=== PATIENT | male | born 1955 | race Caucasian/White ===

== ENCOUNTER 2019-03-28 11:04 | Inpatient (IN) | payer BC ==
[~2019-03-28] VITALS: Ht 165.1 cm; Wt 59.6 kg
[2019-03-28 11:11] VITALS: Ht 165.1 cm; Wt 59.6 kg
--- NOTE | 2019-03-28 11:42 | NUR ---
PT ARRIVES BY AMBULANCE FOR ALOC BUT UPON ARRIVAL IS ALERT AND ORIENTED X 4. C/O BACK PAIN FOR A "LONG TIME" WITH N/V THAT HAS BEEN GOING ON FOR AT ALEAST A MONTH. PT HAS LEFT ABD COLOSTOMY IN PLACE WITH URINARY CATH IN PLACE. PT IS SHAKING UPON ARRIVAL AND CLAIMS SHAKING JUST STARTED. PT IS A FEBRILE. HAS DIAPER IN PLACE THAT IS CLEAN AND DRY. SKIN IS INTACT WITH TURGOT GREATER THAN 3 SEC. PT HAS INTERMITTENT UPPER AND LOWER EXTREMITY BRUISING. DR MICHELE AT BEDSIDE FOR EVAL AND PT CONNECTED TO TOBACCO CHECKOUT CLERK
--- NOTE | 2019-03-28 11:48 | NUR ---
CALLED BRIAN TO CLARIFY CODE STATUS. COPY OF POLST DATED 03/07/19 STATES "ATTEMPT RESUSCITATION/CPR." RESIDENT FACE SHEET HAS NOTATION "DO NOT RESUSUCITATE/COPY ON FILE/POLST 03/18/19." SPOKE W/ HAROON. SHE STATES PT IS DNR & STATES SHE WILL FAX US A COPY. I ALSO EXPRESSED CONCERN THAT A [facility] WAS CALLED FOR HIM GIVING THAT HIS BLOOD PRESSURE WAS HIGH, HE WAS TACHYCARDIC, HE WAS SHORT OF BREATH, HE WAS ACUTELY ALTERED & SHAKING SINCE YESTERDAY, & HE WAS ACTIVELY VOMITING. SHE SAID "OK."
--- NOTE | 2019-03-28 11:54 | NUR ---
PT LEFT FOR CT VIA RNEY
[2019-03-28 12:30] LABS: ALKALINE PHOSPHATASE 126 U/L (46-116); ALT/SGPT 38 U/L (16-63); AST/SGOT 16 U/L (15-37); BILIRUBIN TOTAL 0.63 mg/dL (0.20-1.00); CALCIUM 9.2 mg/dL (8.5-10.1); CARBON DIOXIDE 18.2 mmol/L (21-32); CHLORIDE SERUM 108 mmol/L (98-107); CREATININE SERUM 1.2 mg/dL (0.7-1.3); GFR1 > 60 mL/min; GLUCOSE SERUM 185 mg/dL (74-106); SODIUM SERUM 144 mmol/L (136-145); TOTAL PROTEIN, SERUM 7.2 g/dL (6.4-8.2)
[2019-03-28 12:34] LABS: ALBUMIN 2.9 g/dL (3.4-5.0); CHOLESTEROL 89 mg/dL (<200); HDL CHOLESTEROL 25 mg/dL (40-60)
--- NOTE | 2019-03-28 12:35 | NUR ---
POTASSIUM 2.9 DR MICHELE NOTIFIED.
[2019-03-28 12:36] LABS: POTASSIUM SERUM 2.9 mmol/L (3.5-5.1)
--- NOTE | 2019-03-28 12:40 | NUR ---
AT BEDSIDE AND PT ALERT TO SELF ONLY. AT BEDSIDE CLAIMS THAT PT HAS BEEN INTERMITTENTLY HALLUCINATING AND BECOMING CONFUSED. AT THIS TIME PT SAYING HE WANTS TO GO "SIT IN THE CAR."
[2019-03-28 12:58] LABS: BASOPHIL % 0 % (0-2); PLATELET COUNT 409 x10^3mcL (130-400); RED CELL DISTRIBUTION WIDTH 16.4 % (11.5-14.5)
--- NOTE | 2019-03-28 13:44 | NUR ---
CALLED [facility] FOR COLOSTOMY CHANGE SUPPLIES AND NO ANSWER
--- NOTE | 2019-03-28 14:07 | NUR ---
PT'S REQUESTING WATER AND ICE, PER DR. MICHELE PT CAN HAVE ICE CHIPS ONLY.
[2019-03-28 14:13] LABS: microscopic required? YES; urine erythrocyte 1+ (NEGATIVE)
[2019-03-28] MEDS ORDERED: APAP500 MG PO ×2 (14:24→14:26)
[2019-03-28] MEDS ORDERED: ACIDOPHILUS-PE1 EAC2 PO (14:25)
[2019-03-28] MEDS ORDERED: NOR5 PO (14:32)
[2019-03-28] MEDS ORDERED: GERI-HYDROLAC12% TOP (14:33)
[2019-03-28] MEDS ORDERED: ASPIRIN ADULT L81 M5 PO (14:33)
[2019-03-28] MEDS ORDERED: BUMETANIDE1 MG PO (14:34)
[2019-03-28] MEDS ORDERED: DULCOLAX10 M1 RC (14:34)
[2019-03-28] MEDS ORDERED: NEU300 PO (14:35)
[2019-03-28] MEDS ORDERED: ELMIRON100 MG PO (14:35)
[2019-03-28] MEDS ORDERED: COLACE100 MG PO (14:35)
[2019-03-28] MEDS ORDERED: HUMULIN R500 UNIT/1 SQ (14:37)
[2019-03-28] MEDS ORDERED: HYDRALAZINE HCL50 MG PO (14:39)
[2019-03-28] MEDS ORDERED: LIDODERM51 TOP (14:39)
[2019-03-28] MEDS ORDERED: NASONEX0.05 MG/Ac (14:40)
[2019-03-28] MEDS ORDERED: METOPROLOL TAR100 MG PO (14:40)
[2019-03-28] MEDS ORDERED: ONDANSETRON4 M3 PO (14:41)
[2019-03-28] MEDS ORDERED: FLO4 PO (14:41)
[2019-03-28] MEDS ORDERED: POTASSIUM CHLO10 MEQ PO (14:41)
[2019-03-28] MEDS ORDERED: PANTOPRAZOLE SO40 M1 PO (14:41)
[2019-03-28] MEDS ORDERED: MULTIVITAMIN1 SGL PO (14:42)
--- NOTE | 2019-03-28 14:48 | NUR ---
COLOSTOMY CHANGE PERFORMED AND PT TOLERATED WELL. REQUEST PER AT BEDSIDE
--- NOTE | 2019-03-28 15:05 | NUR ---
AT BEDSIDE CLAIMING SHE WANTED TO GO TO [place] BECAUSE THAT IS WHERE ALL THE DR'S THEY DEAL WITH ARE AT. PT HAS BEEN MEDICATED FOR NAUSEA AND PAIN. ALSO MEDICATED TO FIX POTASSIUM IMBALANCE AND IS CURRRENTLY GETTING IV AB
--- NOTE | 2019-03-28 15:30 | NUR ---
AT BEDSIDE TO SPEAK WITH PT'S .
--- NOTE | 2019-03-28 15:52 | NUR ---
EMPTIED 600M CLEAR YELLOW URINE FROM PT'S SAUCEDA BAG. REMAINS AT BEDSIDE.
--- NOTE | 2019-03-28 16:24 | NUR ---
REPORT GIVEN TO YONAS ON TELE FLOOR
--- NOTE | 2019-03-28 16:37 | NUR ---
RECEIVED PT FROM ED VIA [facility], CAME IN DUE TO ALOC. PT IS AAOX2 (PERSON, PLACE AND BIRTHDATE). ABLE TO FOLLOW SIMPLE COMMANDS. NO SOB NOTED, LUNG SOUNDS CTA, O2 AWL=950%, RR=24. DENIES CHEST PAIN/PRESSURE, SINUS TACHYCARDIA ON THE MONITOR, HR AT 111. PT HAS BEEN NAUSATED AND HAS BEEN VOMITING, UNABLE TO KEEP ANYTHING DOWN. PER PT'S , PT WAS ON TPN. W/ COLOSTOMY, STOMA IS PINK. W/ SAUCEDA CATHETER DRAINING W/ FRANCIA COLORED URINE. C/O 8/10 HIP AND BACK PAIN. W/ SCABS ON THE LEFT FOOT OUTER LATERAL ASPECT, HEAD LOADER. W/ ECCHYMOSIS ON BUE. W/ DOUBLE LUMEN PICC LINE ON THE LUE AND RAC GAUGE 20 PERIPHERAL IV. SIDE RAILS UPX2. CALL LIGHT ON REACH. HOB ELEVATED AT 30 DEG. PRIMARY NURSE YONAS AT BEDSIDE FOR CONTINUITY OF CARE
[2019-03-28 17:12] VITALS: BP 131/87
--- NOTE | 2019-03-28 18:35 | NUR ---
PT IS LAYING DOWN IN BED WITH HOB UP ON THE RIGHT SIDE. PT HAS TREMORS AND IS HAVING ACTIVE HALLUCINATIONS AND IS TALKING TO HIMSELF. PT STATES THAT HE HEARS VOICES BUT "DOESN'T EVER LISTEN TO THEM." PT STATES THE VOICES DO NOT TELL HIM TO HARM HIMSELF OR OTHERS. IV SITE TO RAC IS PATENT WITH NO SIGNS OF ERYTHEMA OR SWELLING WITH IV FLUIDS INFUSING. PICC LINE TO LUE LOOKS PATENT BUT NO ORDER PRESENT FOR OKAY TO USE. 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 FAMILY MEMBER AT BEDSIDE. CALL LIGHT WITHIN REACH. WILL ENDORSE TO ONCOMING SHIFT.
--- NOTE | 2019-03-28 19:35 | NUR ---
REC'D REPORT FROM YONAS BACA TO ASSUME CARE. PT A/O X2, WITH EPISODES OF CONFUSION. PERRLA NOTED. PT NOTED WITH TREMORS. RESPS E/U ON ROOM. LUNG SOUNDS CTA. CHEST RISE EQUAL AND SYMMETRICAL. TELE MONITOR #[address] DENIES ANY CP, SYNCOPE OR DIZZINESS. PULSES PALPABLE X4. CAP REFILL < 3 SECS. NO EDEMA NOTED. NOHEMY PICC LINE IN PLACE, 2 PORTS NOTED WITH 1 PORT ONLY PATENT. FLUSHED WITH 10CC NS WITHOUT ANY DIFFICULTY. IV TO RAC INTACT AND PATENT. IVF NS INFUSING @ 50ML/HR. PT ON CARDIAC DIET WITH POOR APPETITE. PT WITH C/O NAUSEA, WILL NOTIFY MD. ABD FLAT, SOFT, NONTENDER TO TOUCH. COLOSTOMY IN PLACE DRAINING SOFT BROWN STOOL. F/C INTACT AND DRAINING VIA GRAVITY YELLOW URINE. BUE SCATTERED ECCHYMOSIS. LEFT LATERAL FOOT SCAB. GEN WEAKNESS. ABLE TO REPOSITION WITH ASSIST. LEFT FOOT 5TH DIGIT TOE AMPUTATED. POSITIVE HALLUCINATIONS. PT DENIES ANY COMMAND VOICES. DENIES ANY HI OR SI. AT BEDSIDE, UPDATED ON PLAN OF CARE, ALL QUESTIONS AND CONCERNS ADDRESSED. ALL NEEDS MET AT THIS TIME. FALL PRECAUTIONS IN PLACE. WILL CONTINUE TO MONITOR.
[2019-03-28 19:38] VITALS: BP 185/93
--- NOTE | 2019-03-28 19:57 | NUR ---
DR WALLACE MADE AWARE OF ELEVATED BP SBP>180. PT WITH C/O 8/10 PAIN AND NAUSEA. AWAITING FOR FURTHER ORDERS.
--- NOTE | 2019-03-28 20:45 | NUR ---
PT WITH ELEVATED BP AND C/O SEVERE PAIN. DR WALLACE MADE AWARE. OKAY TO GIVE MORPHINE IVP EARLY AT THIS TIME. WILL MONITOR FOR EFFECTIVENESS.
[2019-03-28 21:20] VITALS: BP 147/80
--- NOTE | 2019-03-28 21:20 | NUR ---
BP RECHECKED 147/80. PT APPEARS CALM, NO TREMORS AT THIS TIME.
--- NOTE | 2019-03-29 00:52 | NUR ---
NOHEMY PICC LINE, 2 PORTS NOT PATENT. IV INSERTED TO RFA G 22 WITH GOOD BLOOD RETURN. DR WALLACE MADE AWARE. DR WALLACE STATES WILL LET SILK PRINTER KNOW IN AM TO BE REPLACED.
--- NOTE | 2019-03-29 02:24 | NUR ---
PT SEEN SLEEPING WITH EYES CLOSED BUT EASILY AROUSABLE. NO S/SX OF PAIN PER FLACC SCALE. WILL CONTINUE TO MONITOR.
[2019-03-29 04:22] VITALS: BP 147/77
--- NOTE | 2019-03-29 05:38 | NUR ---
PT SLEEPING BUT EASILY AROUSABLE. NO S/SX OF PAIN PER FLACC SCALE.
[2019-03-29 06:57] LABS: CALCIUM 8.4 mg/dL (8.5-10.1); CARBON DIOXIDE 23.2 mmol/L (21-32); CHLORIDE SERUM 112 mmol/L (98-107); CREATININE SERUM 1.1 mg/dL (0.7-1.3); GFR1 > 60 mL/min; GLUCOSE SERUM 138 mg/dL (74-106); POTASSIUM SERUM 3.4 mmol/L (3.5-5.1); SODIUM SERUM 146 mmol/L (136-145)
[2019-03-29 07:13] LABS: BASOPHIL % 0.3 % (0-2); PLATELET COUNT 383 x10^3mcL (130-400); RED CELL DISTRIBUTION WIDTH 16.3 % (11.5-14.5)
--- NOTE | 2019-03-29 08:17 | NUR ---
ZOFRAN 4MG IVP AND MORPHINE 1MG IVP GIVEN FOR NAUSEA/PAIN AT THIS TIME, WILL CONTINUE TO MONITOR.
[2019-03-29 08:33] VITALS: BP 160/87
--- NOTE | 2019-03-29 09:40 | NUR ---
APPEARS RESTLESS AND AGITATED. ATIVAN 1MG IVP GIVEN SLOWLY, WILL CONTINUE TO MONITOR.
--- NOTE | 2019-03-29 09:46 | NUR ---
SEEN BY DOCTOR SEBASTIAN KENDALL AT BEDSIDE. NOTED ORDERS FOR NGT PLACEMENT TO INTERMITTENT SUCTION AND CT ABD/PELVIS. PATIENT MADE AWARE.
--- NOTE | 2019-03-29 10:00 | NUR ---
COLOSTOMY BAG LEAKING WITH SMALL AMOUNT OF BROWISH STOOL, COLOSTOMY BAG REMOVED. NOTED SURGICAL WOUND TO MIDLINE OF ABDOMEN WITH 14 INGRID INTACT, PHOTO TAKEN, SURGICAL SITE WOUND CLEANSED WITH NS, PAT DRY AND COVERED WITH OP SITE DRSG, HOT TOP LINER HELPER NOTIFIED. NEW COLOSTOMY BAG INPLACED. PATIENT APPEARS DROWSY BUT FOLLOW COMMANDS. ALL SIDERAILS UP X3. BED ALARM ON. CALL LIGHT REINSTRUCTED AND PLACED WITHIN EASY REACH.
--- NOTE | 2019-03-29 10:53 | NUR ---
NGT 14F INSERTED TO LT NARE, NO RESP DISTRESS NOTED. KUB ORDERED.
--- NOTE | 2019-03-29 16:00 | NUR ---
NGT REMOVED PER REDIOLOGIST ADVISED. NEW NGT 12F INSERTED TO LT NARE BY PHUONG CASTELAN. KUB ORDERED.
[2019-03-29 16:47] VITALS: BP 185/95
--- NOTE | 2019-03-29 17:42 | NUR ---
NGT NOTED CAME OUT FROM LEFT NARE. PATIENT REFUSED NGT INSERTION. PATIENT'S SPOUSE MADE AWARE. DOCTOR SEBASTIAN KENDALL PAGED.
--- NOTE | 2019-03-29 18:30 | NUR ---
IV CATH#20 INSERTED TO LAC BY PHUONG CASTELAN ASSISTED BY MANUFACTURING TEST ENGINEERPHUONG PEARCE.
[2019-03-29 19:34] VITALS: BP 144/84
--- NOTE | 2019-03-29 19:35 | NUR ---
RECEIVED PT FROM DAY SHIFT RN. PT ALERT ORIENTED TO SELF AND PLACE. PT BREATHING EVEN AND UNLABORED ON RA WITH NO SOB NOTED. TELE # 11 ST HR 115. PT DENIES CHEST PAIN/PRESSURE. IV PICC LINE TO NOHEMY, IV RFA, IV LAC. PATENT AND FLUIDS INFUSING WELL. ABD SOFT/ROUND. ACTIVE BOWEL SOUNDS. DENIES N/V/ABD PAIN. COLOSTOMY TO LLQ. INCISION TO MIDLINE OF ABD COVERED WITH DRESSING. NO DRAINAGE NOTED. F/C IN PLACE DRAINING YELLOW URINE. GENERALIZED WEAKNESS. LEFT FOOT TOE AMPUTATED, SCAB/ABRASION NOTED SNAG GRINDER. BUE ECCHYMOSIS. CONTACT ISOLATION. CALL BUTTON WITHIN REACH. SAFETY PRECAUTIONS IN PLACE. WILL CONTINUE TO MONITOR. AT BEDSIDE.
--- NOTE | 2019-03-29 19:44 | NUR ---
DOCTOR JOSÉ CALLED BACK. MADE DOCTOR AWARE THAT PATIENT AND HIS SPOUSE REFUSED NGT INSERTION. NEW ORDERS RECIEVED. UPDATED TO PATIENT'S SPOUSE.
--- NOTE | 2019-03-29 20:00 | NUR ---
RECEIVED A CALL FROM DR WEIR TO OBTAIN CONSENT FOR EGD/COLONOSOCOPY FOR 03/30/19. PER DR WEIR TO GIVE FLEET ENEMA X1 TONIGHT AND FLEET ENEMA X1 IN THE MORNING. NEW ORDERS CARRIED OUT.
--- NOTE | 2019-03-29 21:58 | NUR ---
PT RESTLESS. REPOSITIONED IN BED AT THIS TIME. MEDICATED PER EMAR. CALL BUTTON WITHIN REACH. SAFETY PRECAUTIONS IN PLACE. WILL CONTINUE TO MONITOR.
--- NOTE | 2019-03-29 22:00 | NUR ---
ADM FLEET ENEMA PER ORDER. PT IN NO SIGNS OF DISTRESS. REPOSITIONED IN BED. SAFETY PRECAUTIONS IN PLACE. WILL CONTINUE TO MONITOR.
--- NOTE | 2019-03-29 23:00 | NUR ---
PT WENT DOWN TO CT ACCOMPANY BY TECH. NO SIGNS OF DISTRESS NOTED. PT RETURNED BACK TO ROOM. BREATHING EVEN AND UNLABORED NO SOB NOTED. NO SIGNS OF DISTRESS. SAFETY PRECAUTIONS IN PLACE. WILL MONITOR.
--- NOTE | 2019-03-29 23:17 | NUR ---
PT REPORTED FEELING NAUSEAUS. MEDICATED PER EMAR. HOB ELEVATED. NO SIGNS OF DISTRESS. WILL MONITOR.
--- NOTE | 2019-03-30 01:38 | NUR ---
PT RESTING. NO SIGNS OF DISTRESS NOTED. IV PATENT, INFUSING WELL. CALL BUTTON WITHIN REACH. SAFETY PRECAUTIONS IN PLACE. WILL CONTINUE TO MONITOR.
[2019-03-30 05:33] VITALS: BP 182/101
--- NOTE | 2019-03-30 06:11 | NUR ---
PT SLEPT ON AND OFF THROUGHOUT THE NIGHT WITH NO SIGNS OF DISTRESS. NO SOB NOTED. IV PATENT, INFUSING WELL. PT HAD BM X1 LOOSE. PT F/C DRAINING YELLOW URINE. PT TURN AND REPOSITIONED EVERY 2 HOURS AND NEEDED. NO SIGNS OF DISTRESS. CALL BUTTON WITHIN REACH. SAFETY PRECAUTIONS IN PLACE. WILL CONTINUE TO MONITOR AND ENDORSE CARE TO DAY SHIFT RN.
[2019-03-30 06:27] LABS: BASOPHIL % 0.3 % (0-2)
[2019-03-30 06:30] VITALS: BP 150/92
--- NOTE | 2019-03-30 06:30 | NUR ---
SECOND ENEMA GIVEN AT THIS TIME PER ORDER. REPOSITIONED PT AT THIS TIME. NO SIGNS OF DISTRESS. SAFETY PRECAUTIONS IN PLACE.
--- NOTE | 2019-03-30 07:08 | NUR ---
SEEN RESTING WITH EYES CLOSED. NO RESP DISTRESS NOTED ON ROOM AIR. IVF D5NS AT 50ML/HR INFUSING WELL TO RFA IV SITE. S/L TO LAC INTACT AND PATENT. PICC LINE TO NOHEMY BOTH PORTS UNFLUSHABLE. COLOSTOMY NOTED EMPTY AND DRSG TO MIDLINE OF ABDOMEN DRY AND INTACT. CALL LIGHT PLACED WITHIN EASY REACH. SIDERAILS UP X2.
[2019-03-30 07:15] LABS: CALCIUM 8.4 mg/dL (8.5-10.1); CARBON DIOXIDE 24.2 mmol/L (21-32); CHLORIDE SERUM 111 mmol/L (98-107); GFR1 > 60 mL/min; GLUCOSE SERUM 146 mg/dL (74-106); SODIUM SERUM 148 mmol/L (136-145)
--- NOTE | 2019-03-30 07:15 | NUR ---
SEEN IN BED RESTING WITH EYES CLOSED, EASILY TO AROUSE, NO RESP DISTRESS NOTED ON ROOM AIR. ON TELE#11 ST TB=991. KEPT NPO FOR EGD&COLOSTOMY. PATIENT MADE AWARE OF PLAN, NODDED HIS HEAD AND SAID OK. GEN BODY WEAKNESS. COLOSTOMY TO LLQ. ABDN SOFT AND FLAT. SAUCEDA CATH DRAINING TOG RAVITY YELLOW URINE IN COLOR. S/L TO LAC AND IVF D5NS INFUSING WELL AT 50ML/HR. PICC LINE TO NOHEMY ONLY RED PORT FLUSHABLE, DRSG CDI. CALL LIGHT REINSTRUCTED AND PLACED WITHIN EASY REACH. SIDERAILS UP X2. CONTACT ISOLATION MAINTAINED.
[2019-03-30 07:24] LABS: PLATELET COUNT 415 x10^3mcL (130-400); RED CELL DISTRIBUTION WIDTH 15.9 % (11.5-14.5)
--- NOTE | 2019-03-30 07:28 | NUR ---
PT AWAKE DENIES PAIN. NO SIGNS OF DISTRESS. ENDORSED CARE TO DAY SHIFTRN, ALL QUESTIONS ADDRESSED.
[2019-03-30 07:31] LABS: POTASSIUM SERUM 2.9 mmol/L (3.5-5.1)
[2019-03-30 08:06] VITALS: BP 156/58
--- NOTE | 2019-03-30 08:30 | NUR ---
NOTED HAD LOOSE BM DARK BROWISH STOOL, PERIANAL AREA CLEANED AND NEW CLARY INPLACE. PATIENT IS AWAKE,ALERT, ORIENTED X3, ABLE TO MAKE NEEDS KNOW AND FOLLOW COMMANDS. ABLE TO REPOSITION SELF IN BED. CALL LIGHT PLACED WITHIN EASY REACH. SIDERAILS UP X2.
--- NOTE | 2019-03-30 09:20 | NUR ---
LEFT FLOOR VIA BED FOR EGD&COLONOSCOPE.
--- NOTE | 2019-03-30 10:30 | NUR ---
PER GI WOOL HAT FINISHER, DRSG AND COLOTOMY BAG REMOVED BY DOCTOR MIRANDA FOR PROCEDURE. MIDLINE INCISION CLEANSED WITH NS AND NEW DRSG APPLIED, NEW COLOSTOMY CHANGED AT GI LAB BY ME.
[2019-03-30 10:56] VITALS: BP 97/60
--- NOTE | 2019-03-30 10:56 | NUR ---
RECEIVED BACK FROM EGD&COLONOSCOPE VIA BED. SEEN ASLEEP, AROUSABLE, VERY DROWSY. BREATHING E/U ON ROOM AIR. BP 97/60, HR 107, RR 20 O2SAT 99% ON ROOM AIR, TEMP 98.8. HOB ELEVATED AT 30DEG. COLOSTOMY TO LLQ NO STOOL NOTED, DRSG TO MIDLING OF ABDOMEN CDI. SAUCEDA CATH DRAINING OUT YELLOW URINE IN COLOR. K RIDER 40MEQ INFUSIUNG AT 68ML/HR TO RFA IV SITE. S/L TO LAC INTACT AND PATENT. CALL LIGHT PLACED WITHIN EASY REACH. SIDERAILS UP X3. BED ALARM ON. WILL CONTINUE TO MONITOR.
--- NOTE | 2019-03-30 15:25 | NUR ---
AWAKE, ALERT, ORIENTED X3. STATED HAVING ABDOMINAL PAIN 7/10 ON PAIN SCALE AND VOMITED NOTED LIGHT GREENISH EMESIS. MORPHINE 1MG IVP AND ZOFRAN 4MG IVP GIVEN. MRSA NARES NOTED NEGATIVE RESULT, STANDARD ISOLATION ON, PATIENT AND FAMILY MADE AWARE.
--- NOTE | 2019-03-30 17:13 | NUR ---
SOAPSUDS ENEMA DONE AT BEDSIDE.
--- NOTE | 2019-03-30 17:22 | NUR ---
STATED STILL FEELING VERY NAUSEATED AFTER ZOFRAN IV GIVEN. ARELY CM MADE AWARE.
[2019-03-30 17:52] VITALS: BP 156/94
[2019-03-30 19:34] VITALS: BP 156/84
--- NOTE | 2019-03-30 19:41 | NUR ---
PT C/O GENERALIZED BOCY ACHES RATED 10/10. PT MEDICATED WITH MORPHINE IVP PER EMAR. WILL CONT TO MONITOR
--- NOTE | 2019-03-30 20:00 | NUR ---
RECEIVED PT FROM PHUONG BALBUENA. PT CURRENTLY RESTING IN BED, NO ACUTE DISTRESS. A/O X3, DROWSY BUT ARROUSABLE, CONFUSED AT TIMES. TELE #11 SHOWING SINUS TACHYCARDIA, DENIES CHEST PAIN. PULSES PALPABLE IN ALL EXTREMITIES, NO EDEMA NOTED. LUNG SOUNDS CTA BILATERALLY, DENIES SOB. LLQ COLOSTOMY NOTED. SAUCEDA CATHETER IN PLACE, FRANCIA URINE NOTED. GENERALIZED WEAKNESS. MIDLINE ABD INCISION WITH INGRID, DRESSING CDI. LEFT FOOT DRY SCAB, SALON CUSTOMER EXPERIENCE SPECIALIST. IV TO RFA AND LAC PATENT AND INTACT. BED IN LOWEST POSITION, SIDE RAILS UP X2, CALL LIGHT WITHIN REACH. WILL CONTINUE TO MONITOR.
--- NOTE | 2019-03-30 20:12 | NUR ---
REPORT GIVEN TO VITO BACA FOR CONTINUITY OF CARE. ALL QUESTIONS/CONCERNS ADDRESSED. ENDORSING ALL CARE
--- NOTE | 2019-03-30 22:31 | NUR ---
TAP WATER ENEMA ADMINISTERED, PT TOLERATED PROCEDURE WELL. MIDLINE ABD INCISION DRESSING CHANGED. PT CURRENTLY RESTING IN BED, NO ACUTE DISTRESS. WILL CONTINUE TO MONITOR.
--- NOTE | 2019-03-31 00:11 | NUR ---
PT CURRENTLY RESTING IN BED, NO ACUTE DISTRESS. WILL CONTINUE TO MONITOR.
[2019-03-31 04:59] VITALS: BP 161/78
--- NOTE | 2019-03-31 06:50 | NUR ---
PT SLEPT PERIODICALLY THROUGHOUT NIGHT, NO ACUTE DISTRESS. ALL NEEDS MET AND ATTENDED TO. NO SIGNIFICANT CHANGES. IV PATENT AND INTACT. MEDICATED PAIN PER EMAR. BED IN LOWEST POSITION, SIDE RAILS UP X2, CALL LIGHT WITHIN REACH. WILL ENDORSE CARE TO ONCOMING NURSE.
[2019-03-31 07:23] LABS: BASOPHIL % 0.3 % (0-2); PLATELET COUNT 378 x10^3mcL (130-400)
[2019-03-31 07:52] LABS: RED CELL DISTRIBUTION WIDTH 15.3 % (11.5-14.5)
[2019-03-31 08:06] VITALS: BP 123/50
[2019-03-31 08:15] VITALS: BP 135/70
[2019-03-31 09:26] LABS: CALCIUM 7.4 mg/dL (8.5-10.1); CARBON DIOXIDE 20.5 mmol/L (21-32); CHLORIDE SERUM 108 mmol/L (98-107); CREATININE SERUM 0.9 mg/dL (0.7-1.3); GFR1 > 60 mL/min; GLUCOSE SERUM 113 mg/dL (74-106); SODIUM SERUM 143 mmol/L (136-145)
[2019-03-31 09:35] LABS: POTASSIUM SERUM 2.4 mmol/L (3.5-5.1)
--- NOTE | 2019-03-31 09:35 | NUR ---
RECEIVED CRITICAL LAB, POTASSIUM 2.4, ARELY CM MADE AWARE.
--- NOTE | 2019-03-31 10:55 | NUR ---
PATIENT GOING DOWN FOR SIGMOIDOSCOPY, MADE GI LAB NURSE AWARE THAT K RIDER IS STILL IN PROGRESS, PER GI OKAY TO CONTINUE INFUSION WHEN PATIENT GOES TO GI LAB. PATIENT HAD BM POST FLEET ENEMA ADMINISTRATION, GREEN LIQUID STOOL. CLEANED PRIOR TO TRANSPORTING TO GI LAB. NO SIGN OF ACUTE DISTRESS.
[2019-03-31 12:14] VITALS: BP 112/56
--- NOTE | 2019-03-31 14:54 | NUR ---
Initial Nutrition Assessment: 254T/B NITO EUBANKS HR Dx: Abd pain, colitis, ALOC PMHx: HTN DM, BPH, Hyperlipidemia, UTI, BLADDER CA PSHx: colostomy, cholecystectomy Labs: NA 148H, BG 146H, ALB 2.9L, HGB 9.5L Meds: Ativan, Colace, D 5%, D 50%, Dulcolax, flagyl, humulin, morphine, reglan, theragran, zofran Diet: NPO (endoscopy), (03/30) full liquid PO Intake: 0% (full liquid) Ht: 165.1 cm (65") Wt: 59.6 kg (131#) BMI: 21.9 kg/m2 Bed scale: 120.6# IBW: 136# (62 kg) %IBW: 96 UBW: 130# Age: 64/M Food Allergies: NKFA Skin: midline abd incision Juanjo: 14 Edema: none GI: colostomy to LLQ Last BM: 03/30 Trigger: N/V/D >3d, unintentional wt loss, TF/TPN Per H&P, Pt is a 64-year old male who was seen and examined in the ER. [facility] to a 1 month history of intermittent abdominal pain. RDN Visit (03/31): Patient was alert and oriented with at bedside. Patient had a sigmoidoscopy this morning and is NPO currently. Spoke with ARELY Stephen, she said that she is waiting for Dr. Roman church's recommendations. Per , patient was on TPN in november and in the [facility] patient was treatment for foor infection in november. In the hospital, patient sometimes drank ONS Glucerna orally per . Patient was also on tube feedings for brief period of time per . Problem with: N/V/D/C: none at this time Problems with: Chewing/Swallowing: none Current appetite: fair Recent wt change: lost 10 # x 1 month %wt change: 7% Vitamin/Supplement use: none at this time Special diet at home: n/a Physical activity: n/a (in and out of hospital since november) Nutrition education given: none at this time Food-drug interactions: Colace- high fiber w/7534-0858 ml fluids Education given: n/a Estimated Nutritional Needs Based on current body weight 59.6 kg Energy: 4540-8169 kcal/d (25-30 kcal/kg) Protein: 59-72 g/d (1.0-1.2 g/kg) - preserve LBM Fluid: 4620-4747 ml/d (1 ml/kcal) or per doctor Nutrition Diagnosis 1. Altered GI function related to colitis as evidenced by colostomy. Intervention 1. Recommend patient to be NPO until GI doctors recommendations. If patient cleared for oral PO, start patient on CCHO, cardiac diet. Discussed with CHICKEN AND FISH CLEANER Hailee. Monitor/Evaluate Goal: PO intake at least 75% of estimated needs Monitor: PO intake, Labs, GI function F/U in 2-3 days as high risk 04/02-
--- NOTE | 2019-03-31 14:54 | NUR ---
1. Recommend patient to be NPO until GI doctors recommendations. If patient cleared for oral PO, start patient on CCHO, cardiac diet. Discussed with COAL WEIGHER Hailee.
--- NOTE | 2019-03-31 15:20 | NUR ---
CONSENT OBTAINED FOR PICC LINE INSERTION, PATIENT HAS AT BEDSIDE SIGN FOR CONSENT. CHARTED.
[2019-03-31 16:48] VITALS: BP 124/64
--- NOTE | 2019-03-31 16:55 | NUR ---
PICC LINE TO NOHEMY REMOVED AND NEW PICC LINE INSERTED TO LOREE BY PICC LINE NURSE, PATIENT TOLERATED WELL, SITES WNL. TEGADERM DRESSINGS CDI. XRAY DONE TO CONFIRM PLACEMENT AND RESULT REPORTED TO ARELY CM, ORDER IN PLACE FOR OKAY TO USE.
--- NOTE | 2019-03-31 19:50 | NUR ---
PT. AWAKE, ALERT, ORIENTED X4. DENIES HEADACHE OR DIZZIENSS. SPEECH CLEAR. ABLE TO FOLLOW COMMANDS. GENERALIZED WEAKNESS NOTED. NSR ON TELE #11. DENIES CHESTPAIN. BREATH SOUNDS CLEAR THROUGHOUT LUNG WAY, RESP. EVEN, UNLABORED. NO SOB NOTED. PT. ON RA. ABD. SOFT AND ROUND, BOWEL SOUNDS ACTIVE. COLOSTOMY TO DRAINAGE BAG, STOMA BEEFY RED. MID ABD DRSG CDI, INGRID INTACT, NO S/S OF INFECTION. IVF D5NS AT 50CC/HR TO PICC LINE, RUE. CALL LIGHT WITHIN REACH.
[2019-03-31 20:53] VITALS: BP 185/89
--- NOTE | 2019-03-31 21:17 | NUR ---
PRN MORPHINE IVP GIVEN FOR C/O ABD. PAIN, -02/15. WILL MONITOR.
--- NOTE | 2019-04-01 01:56 | NUR ---
PT. QUIET, EYES CLOSED. APPEARS TO BE SLEEPING. IVF INFUSING WELL, SITE REMAINS INTACT. DRSG TO ABD WITHOUT DRAINAGE THUS FAR. COLOSTOMY DRAINING WELL TO BAG. CALL LIGHT WITHIN REACH.
--- NOTE | 2019-04-01 03:38 | NUR ---
PT. REQUESTING PAIN MEDICATION, ABD. PAIN 8/10 PER PT. JUST ACHING PER PT. LITTLE OR SCANT AMOUNT OF DRAINAGE NOTED THUS FAR FROM COLOSTOMY. DRSG TO MID ABD REMAINS INTACT AND DRY. PRN MORPHINE IVP GIVEN. WILL MONITOR. CALL LIGHT WITHIN REACH.
[2019-04-01 04:46] VITALS: BP 172/86
--- NOTE | 2019-04-01 05:50 | NUR ---
PT. SLEEPING AT THIS TIME. RECEIVED PRN PAIN MEDICATION. NO BM NOTED THROUGHOUT NIGHT. BOWEL SOUNDS REMAINS ACTIVE. DRSG TO MID ABD. CDI. F/C DRAINING WELL TO GRAVITY. IV CATH AND IV PICC LINE REMAINS INTACT. CALL LIGHT WITHIN REACH, WILL ENDORSE PT. CARE TO INCOMING NURSE.
--- NOTE | 2019-04-01 06:12 | NUR ---
SAUCEDA CARE COMPLETED FOR PT.
[2019-04-01 06:24] LABS: BASOPHIL % 0.1 % (0-2); PLATELET COUNT 366 x10^3mcL (130-400)
[2019-04-01 06:32] LABS: CARBON DIOXIDE 23.3 mmol/L (21-32); CHLORIDE SERUM 108 mmol/L (98-107); CREATININE SERUM 0.9 mg/dL (0.7-1.3); GFR1 > 60 mL/min; GLUCOSE SERUM 103 mg/dL (74-106); POTASSIUM SERUM 3.4 mmol/L (3.5-5.1); SODIUM SERUM 141 mmol/L (136-145)
[2019-04-01 06:50] LABS: RED CELL DISTRIBUTION WIDTH 15.6 % (11.5-14.5)
--- NOTE | 2019-04-01 07:30 | NUR ---
AAOX4. TELE 11 NSR. CTA BILATERALLY. CLEAR LUNG SOUNDS, RA, 99%. COLOSTOMY CDI. ABD INGRID CDI. NORMOACTIVE BSX4. SAUCEDA CATHETER DRAINING FRANCIA URINE. COOPERATIVE. GENERALIZED WEAKNESS, LIMITED MOBILITY, ABLE TO TURN. NORMAL PERIPHERAL PULSES, NO EDEMA.
--- NOTE | 2019-04-01 07:30 | NUR ---
PICC LINE LOREE PATENT, CDI.
--- NOTE | 2019-04-01 08:25 | NUR ---
PATIENT STATES FEELING NAUSEOUS. ADMINISTERED ZOFRAN 4 MG. PATIENT STATES FEELING LESS NAUSEOUS AFTER ADMINISTRATION.
[2019-04-01 09:00] VITALS: BP 159/82
--- NOTE | 2019-04-01 09:30 | NUR ---
HE STATES THAT HE DOESNT TAKE MEDICATIONS, HE IS NPO. HIS BP WAS 172/86, SO WE GAVE LOPRESSOR AND NORVASC, BUT HELD ALL THE OTHER PO MEDICATIONS THAT WERE DUE AT 0900. I NOTIFIED GENIA HUBBARD OF THIS. SHE IS AWARE OF THE SERUM K AT 3.4, AND THERE ARE NO FURTHER ORDERS. HE C/O NAUSEA AND VOMITING IF HE TAKES TOO MANY PO MEDICATIONS.
--- NOTE | 2019-04-01 11:35 | NUR ---
SCREEN FOR LOW JACOB SCALE AT RISK CONTINUE PRESSURE ULCER PREVENTION INTERVENTIONS: -TURN AND REPOSITION PATIENT Q 2H OFFLOAD LEFT AND RIGHT HIPS -ASSESS AND MONITOR SKIN CONDITION DURING POSITION CHANGE -OFFLOAD BILATERAL HEELS BY PLACING PILLOWS UNDER CALVES AT ALL TIMES, UNLESS OTHERWISE CONTRAINDICATED -PRESSURE REDISTRIBUTION SURFACE THERAPY -KEEP SKIN CLEAN AND DRY AT ALL TIMES.
[2019-04-01 12:54] VITALS: BP 158/81
--- NOTE | 2019-04-01 12:54 | NUR ---
PATIENT REMAINS NAUSEOUS. GAVE REGLAN 10 MG. AFTERWARD, PATIENT FEELS LESS NAUSEOUS NOW.
--- NOTE | 2019-04-01 16:42 | NUR ---
PATIENT STATES FEELING NAUSEOUS. GAVE ZOFRAN 4MG. PATIENT STATES FEELING LESS NAUSEOUS.
[2019-04-01 17:13] VITALS: BP 159/82
--- NOTE | 2019-04-01 18:00 | NUR ---
AAOX4, COOPERATIVE & OBEYS COMMANDS. TELE#11, NSR. PERIPHERAL PULSES ARE PALPABLE, W/ NO SIGNS OF EDEMA. CTA BILATERALLY, ON RA W/ O2 SAT 99%. NORMOACTIVE BOWEL SOUNDS, IMPROVED NAUSEA AFTER MEDS ADMINISTERED, COLOSTOMY CDI. SAUCEDA CATHETER DRAINING FRANCIA COLORED URINE. LIMITED MOBILITY. MID-ABD STAPLE INSERTIONS CDI. PICC SITE CDI.
--- NOTE | 2019-04-01 18:29 | NUR ---
NURSING CO-SIGN THE DOCUMENTATION ENTERED BY THE IP HAS BEEN REVIEWED. REVIEWED/CO-SIGNED BY: Kelsi Ahumada DOCUMENTATION DONE BY: ARMIDA HANCOCK RN.
--- NOTE | 2019-04-01 19:58 | NUR ---
PT. AWAKE, ALERT, ORIENTED X4. DENIES HEADACHE OR DIZZINESS. SPEECH CLEAR. ABLE TO FOLLOW COMMANDS. BREATH SOUNDS CLEAR THROUGHOUT LUNG WAY, RESP. EVEN, UNLABORED. NO SOB NOTED. PT. ON ROOM AIR. ABD. SOFT AND ROUND, BOWEL SOUNDS ACTIVE. DENIES NAUSEA, HAS SOME PAIN BUT DENIES PAIN MEDICATION AT THIS TIME. NO EDEMA TO BLE. PEDAL PULSES MODERATE BLE. PICC LINE IN-SITU TO LOREE. IVF D5NS INFUSING AT 50CC/HR. DR. KUMAR MADE ROUNDS EARLIER AND WAS MADE AWARE THAT PT. HAS BEEN UNABLE TO KEEP FOOD DOWN, HAD VOMITING TODAY AND YESTERDAY , AND ALSO MADE AWARE OF HIS CONSTANT C/O ABD PAIN. DR. KUMAR SPOKE WITH PATIENT REGARDING USE OF MORPHINE FOR PAIN, WHISH HE STATED INCREASES HIS NAUSEA, ALSO MENTIONED THAT HIS DIAGNOSTIC TESTS DID NOT REVEAL ANY MASS AND HIS OPINION WAS THAT PERHAPS THE COLOSTOMY NEEDED TO BE REVERSED. DR. KUMAR SUGGESTED SURGICAL CONSULT, PLACED A TPN ORDER FOR THE PATIENT. DR. WALLACE AND DR. KIMBALL MADE AWARE OF DR. KUMAR'S SUGGESTION AND HIS ORDER FOR TPN.
[2019-04-01 20:39] VITALS: BP 170/74
--- NOTE | 2019-04-01 21:32 | NUR ---
PT. STATED THAT HE WAS A LITTLE RESTLESS AND HASNT SLEPT "SOLID" FOR THE PAST FEW NIGHT. PRN ATIVAN. WILL MONITOR.
[2019-04-02] VITALS (7 sets, daily range): BP systolic 134–195; BP diastolic 62–90
--- NOTE | 2019-04-02 02:47 | NUR ---
PT. W/ EYES CLOSED, SLEEPING INTERMITTENTLY. NO RESP DISTRESS THUS FAR. NO C/O PAIN AT THIS TIME. IVF INFUSING WELL, SITE REMAINS INTACT. CALL LIGHT WITHIN REACH.
--- NOTE | 2019-04-02 05:29 | NUR ---
PT.'S BLOOD PRESSURE 195/90, MAP 108. PRN HYDRALAZINE IVP GIVEN. BP REPEATED 30 MINUTES AFTER, BP NOW 137/66 MAP 88. NO C/O PAIN. PT. ONLY C/O NOT SLEEPING ENOUGH. CALL LIGHT WITHIN REACH.
[2019-04-02 06:44] LABS: BASOPHIL % 0.2 % (0-2); PLATELET COUNT 376 x10^3mcL (130-400)
[2019-04-02 06:51] LABS: CALCIUM 7.6 mg/dL (8.5-10.1); CARBON DIOXIDE 23.1 mmol/L (21-32); CHLORIDE SERUM 105 mmol/L (98-107); CREATININE SERUM 0.9 mg/dL (0.7-1.3); GFR1 > 60 mL/min; GLUCOSE SERUM 106 mg/dL (74-106); MAGNESIUM 1.3 mg/dL (1.8-2.4); SODIUM SERUM 140 mmol/L (136-145)
[2019-04-02 06:55] LABS: RED CELL DISTRIBUTION WIDTH 15.5 % (11.5-14.5)
[2019-04-02 06:58] LABS: POTASSIUM SERUM 2.5 mmol/L (3.5-5.1)
--- NOTE | 2019-04-02 07:09 | NUR ---
RECEIVED PT FROM EQUIPMENT OPERATOR WAGE HAND NURSE. PT IN BED SLEEPING, AROUSABLE, RESP E/U ON RA. NO SIGNS OF ACUTE DISTRESS NOTED. PICC LINE TO RUE W/ NO SIGNS ON INFILTRATION, IVF INFUSING WELL. SAUCEDA IN PLACE DRAINING YELLOW URINE TO GRAVITY. BED IN LOWEST POSITION AND CALL LIGHT WITHIN REACH. WILL CONTINUE TO MONITOR.
--- NOTE | 2019-04-02 17:58 | NUR ---
PT IN BED SLEEPING, AROUSABLE, RESP E/U ON RA. NO SIGNS OF ACUTE DISTRESS NOTED. PICC LINE TO LOREE W/ NO SIGNS OF INFILTRATION, IVF INFUSING WELL, SALINE LOCK TO RFA W/ NO ERYTHEMA OR EDEMA. COLOSTOMY TO LUQ W/ NO OUTPUT AT THIS TIME, CDI. SAUCEDA IN PLACE DRAINING FRANCIA URINE TO GRAVITY. BED IN LOWEST POSITION AND CALL LIGHT WITHIN REACH. WILL ENDORSE TO ONCOMING NURSE.
--- NOTE | 2019-04-02 20:31 | NUR ---
PATIENT RECEIVED RESTING IN BED. RESPIRATION EVEN AND UNLABORED, ON ROOM AIR. ONGOING D5NS AT 50 CC/HR INFUSING WELL AT THE LOREE PICC LINE, TO START PARENTERAL NUTRITION TONIGHT, SALINE LOCK TO RFA. DENIES GI DISCOMFORT AT THIS TIME, COLOSTOMY TO LUQ INTACT. SAUCEDA CATHETER TO GRAVITY DRAINING YELLOW COLORED URINE. GENERALIZED WEAKNESS TO EXTREMITIES. SURGICAL INCISION TO MID ABDOMEN WITH INGRID COVERED WITH DRY AND INTACT DRESSING. DENIES PAIN AT THIS TIME. ON TELE #11. WILL CONTINUE TO MONITOR.
--- NOTE | 2019-04-03 | NUR ---
PATIENT COMPLAINED OF BACK PAIN, 02/15. MEDICATED WITH MORPHINE SULFATE 1 MG IVP ORDERED. WILL CONTINUE TO MONITOR.
[2019-04-03 05:39] VITALS: BP 172/82
--- NOTE | 2019-04-03 05:56 | NUR ---
PATIENT AWAKE, ALERT IN BED WATCHING TV. RESPIRATION EVEN AND UNLABORED, ON ROOM AIR. LOREE PICC LINE PATENT AND INTACT WITH ONGOING D5NS AT 30 CC/HR AND TPN AT 50 CC/HR INFUSING WELL. COLOSTOMY TO LLQ IN PLACED, NO OUTPUT NOTED. MIDLINE ABDOMINAL INCISION COVERED WITH DRY AND INTACT DRESSING. SAUCEDA CATHETER TO GRAVITY DRAINING FRANCIA COLORED URINE. ON CLEAR LIQUID DIET. DENIES PAIN AT THIS TIME. ASSISTED WITH NEEDS. SAFETY OBSERVED. PLACED BED IN THE LOWEST POSITION. PLACED CALL LIGHT WITHIN REACH AT ALL TIMES.
[2019-04-03 06:52] LABS: BASOPHIL % 0.2 % (0-2); PLATELET COUNT 389 x10^3mcL (130-400)
[2019-04-03 06:53] VITALS: BP 146/75
[2019-04-03 07:18] LABS: RED CELL DISTRIBUTION WIDTH 15.6 % (11.5-14.5)
--- NOTE | 2019-04-03 07:19 | NUR ---
REPORT TAKEN FROM RAIL SETTER NURSE AT THE BEDSIDE, PATIENT WOKE FOR REPORT, ALERT AND ORIENTED, IN NO ACUTE DISTRESS AT THIS TIME, WILL CONTINUE TO MONITOR.
[2019-04-03 07:39] LABS: CALCIUM 7.3 mg/dL (8.5-10.1); CARBON DIOXIDE 22.9 mmol/L (21-32); CHLORIDE SERUM 101 mmol/L (98-107); CREATININE SERUM 0.8 mg/dL (0.7-1.3); GFR1 > 60 mL/min; GLUCOSE SERUM 324 mg/dL (74-106); MAGNESIUM 1.9 mg/dL (1.8-2.4); PHOSPHOROUS 2.1 mg/dL (2.5-4.9); SODIUM SERUM 136 mmol/L (136-145)
[2019-04-03 07:47] LABS: POTASSIUM SERUM 2.4 mmol/L (3.5-5.1)
[2019-04-03 08:20] VITALS: BP 159/55
[2019-04-03 11:59] VITALS: BP 109/42
[2019-04-03] MEDS ORDERED: KLOR-CON 1010 MEQ PO (14:04)
--- NOTE | 2019-04-03 14:08 | NUR ---
Follow-up Nutrition Assessment: 254T/B NITO EUBANKS FU HR Dx: Abd pain, colitis, ALOC PMHx: HTN DM, BPH, Hyperlipidemia, UTI, BLADDER CA Labs: (04/03): K 2.4L, BG 324H, ALB 2.9L, HGB 9.7L Meds: Ativan, Colace, D 5%, D 50%, Dulcolax, flagyl, humulin, megace, reglan, theragran, zofran Diet: TPN D 25%, AA 5% @ 50 ml/hr, total volume 1200 ml PO Intake: NPO Weights: (03/28) 59.6 kg, (03/31)54.8 kg, (04/03) Skin: surgical dressing to midline with sky Juanjo: 14 I/Os: (04/02) 1705/1750 (-45) Edema: none GI: colostomy to LLQ Last BM: 04/02 RDN Visit (04/03): Patient was alert and oriented and TPN is being infused at 50 ml/hr. Patient does not have any N/V/D/C at this time. Estimated Nutritional Needs Based on current body weight 59.6 kg Energy: 3531-1004 kcal/d (25-30 kcal/kg) Protein: 59-72 g/d (1.0-1.2 g/kg) - preserve LBM Fluid: 6058-7501 ml/d (1 ml/kcal) or per doctor Nutrition Diagnosis 1. Altered GI function related to not tolerating PO as evidenced by paremteral nutrition infusion. Intervention 1. Recommend continuing TPB D 25%, AA 5% @ 50ml/hr. This provides 1260 kcal and 60g protein. This meets 84% calorie and 100% protein needs of the patient. Monitor/Evaluate Goal: Have pt meet at least 75% of estimated needs Monitor: TPN tolerance, Labs, GI function F/U in 2-3 days as high risk 04/05-
[2019-04-03] MEDS ORDERED: MOR2I PO (14:12)
[2019-04-03] MEDS ORDERED: TPN PER PHARMACY MC (14:12)
[2019-04-03] MEDS ORDERED: NOVAPLUS LIDOCAINE5% TOP (14:13)
[2019-04-03] MEDS ORDERED: FLA500 PO (14:14)
[2019-04-03 16:22] VITALS: BP 106/60
--- NOTE | 2019-04-03 16:43 | NUR ---
REPORT GIVEN TO LINDA BRAXTON AT THE BEDSIDE, I SPOKE TO ALEXSANDER AT [facility] TO GIVE REPORT ON PATIENT CONDITION AND PLAN OF CARE.
--- NOTE | 2019-04-03 16:54 | NUR ---
TELE RETURNED TO AR STATION.
== END 2019-04-03 17:00 | DRG 871 ==
LOC: ED 11:04 → DU 15:13
PROVIDERS: Emergency Medicine; General Practice; Internal Medicine; ADMIT Internal Medicine
PROC: 0DJD8ZZ Inspection of Lower Intestinal Tract, Via Natural or Artificial Opening Endoscopic (ICD-10-PCS; principal; 2019-03-28)
PROC: 0DJD8ZZ Inspection of Lower Intestinal Tract, Via Natural or Artificial Opening Endoscopic (ICD-10-PCS; 2019-03-28)
PROC: 0W3P8ZZ Control Bleeding in Gastrointestinal Tract, Via Natural or Artificial Opening Endoscopic (ICD-10-PCS; 2019-03-30 09:00)
DX: A41.9 Sepsis, unspecified organism (principal); N17.0 Acute kidney failure with tubular necrosis; N18.6 End stage renal disease; I12.0 Hypertensive chronic kidney disease with stage 5 chronic kidney disease or end stage renal disease; K52.9 Noninfective gastroenteritis and colitis, unspecified; E11.9 Type 2 diabetes mellitus without complications; Z88.8 Allergy status to other drugs, medicaments and biological substances; E11.22 Type 2 diabetes mellitus with diabetic chronic kidney disease; Z85.51 Personal history of malignant neoplasm of bladder; E78.5 Hyperlipidemia, unspecified; E86.0 Dehydration; Z90.49 Acquired absence of other specified parts of digestive tract; E87.6 Hypokalemia; E83.42 Hypomagnesemia; Z88.6 Allergy status to analgesic agent
CPT/HCPCS: 43235; 45330; 45378; 82962; 97116-GP; 97530-GP; C1751; C9113; G0378; J0360; J1200; J1610; J1956; J2060; J2250; J2270; J2310; J2405; J2550; J2765; J3010; J3475; J3480; J3490; J7030; J7042; Q0092; Q9967